=== PATIENT | female | born 1945 | race Caucasian/White ===

== ENCOUNTER 2019-07-05 20:47 | Observation (INO) | payer MEDICARE, OTHER, SELFPAY ==
[2019-07-05] VITALS (10 sets, daily range): BP systolic 168–233; BP diastolic 70–109; PULSE 60–80; RESP 13–23; TEMP 36.1; O2SAT 95–99; BMI 26.2
--- NOTE | 2019-07-05 21:07 | DI.RAD.S_ITS ---
PROCEDURE: XR CHEST 1V INDICATIONS: chest pain TECHNIQUE: One view of the chest was acquired. COMPARISON: None. FINDINGS: Surgical changes and devices: None. Lungs and pleura: Lungs are clear. No pleural effusions or pneumothorax. Mediastinum: Mediastinal contours appear normal. Heart size is normal. Bones and chest wall: No suspicious bony lesions. Overlying soft tissues appear unremarkable. IMPRESSION: No acute cardiopulmonary disease process. Dictated by: Alanis Dotson MD, PhD on 07/05/2019 at 21:44 Approved by: Alanis Dotson MD, PhD on 07/05/2019 at 21:45
[2019-07-05 21:37] LABS: Add Manual Diff / Slide Review NO; Basophils Absolute Auto 100 /uL (0-100); Basophils Percent Auto 1.1 % (0-2); Eosinophils Absolute Auto 100 /uL (0-450); Eosinophils Percent Auto 0.9 % (2-4); Hematocrit 41.1 % (36-46); Hemoglobin 14.1 g/dL (12.0-16.0); Lymphocytes Absolute Auto 1900 /uL (1100-4500); Mean Corpuscular HGB Conc 34.2 % (30-36); Mean Corpuscular Hemoglobin 29.4 PG (26-34); Monocytes Absolute Auto 500 /uL (0-900); Monocytes Percent Auto 7.7 % (3-14); Neutrophils Absolute Auto 3500 /uL (1500-7000); Neutrophils Percent Auto 58.3 % (50-75); Platelet Count 252 X10^3/uL (150-400); Red Blood Cell Count 4.78 X10^6/uL (4.0-5.2); Red Cell Distribution Width 13.4 % (11.6-14.8)
--- NOTE | 2019-07-05 21:50 | ED_ITS ---
HPI - General Adult General Chief complaint: Hypertension Stated complaint: high blood pressure and headache Time Seen by Provider: 07/05/19 21:40 Source: patient and family Mode of arrival: Ambulatory Limitations: no limitations History of Present Illness HPI narrative: 74-year-old female nonsmoker with history of hypertension presents with her in the chief complaint of gradually rising blood pressure over the past 2 weeks. Historically she had been managed with lisinopril 10 mg daily by her primary care provider in [place] but she has been gradually rising. She presents tonight with chief complaint of a headache and blood pressures in the 200s. She denies any blurred vision, trouble speech or focal neurologic findings such as numbness, tingling or weakness. She has no chest pain or shortness of breath and denies any abdominal pain, nausea or vomiting. She denies any dietary change or other lifestyle changes, stating that she is very relaxed considering world events. She was encouraged to increase lisinopril from 10-20 mg a few days ago and today he even took 30. Her headache has been gradually worsening and generalized in nature without much in the way of provocation or palliation. Onset (ago): day(s) Location: head Radiation: non-radiation Severity: moderate Quality: aching Pain Consistency: constant Relieving factors: none Exacerbating factors: none Associated symptoms: denies other symptoms Treatments prior to arrival: NSAID and aspirin Related Data Previous Rx's Medication Instructions Recorded hydralazine 10 mg PO QID 7 Days #28 tab 07/05/19 Allergies Allergy/AdvReac Type Severity Reaction Status Date / Time codeine Allergy Verified 07/05/19 23:13 oxycodone AdvReac Verified 07/05/19 23:13 Review of Systems Constitutional Constitutional: Denies chills, Denies fatigue, Denies fever(s), Denies frequent falls, Reports headache(s), Denies lethargy and Denies weakness Eyes Eyes: Denies change in vision, Denies eye discharge, Denies irritation and Denies loss of vision ENT Ears, Nose, Mouth, and Throat: Denies change in voice, Denies dizziness, Reports headache(s), Denies neck pain, Denies sore throat and Denies throat swelling Cardiovascular Cardiovascular: Denies chest pain, Denies irregular heart rhythm, Denies lightheadedness, Denies palpitations, Denies dyspnea, Denies dyspnea on exertion and Denies orthopnea Respiratory Respiratory: Denies cough, Denies dyspnea, Denies dyspnea on exertion and Denies wheezing Gastrointestinal Gastrointestinal: Denies abdominal pain, Denies change in bowel habits, Denies diarrhea, Denies nausea and Denies vomiting Genitourinary Genitourinary: Denies hematuria, Denies flank pain, Denies urinary incontinence and Denies urinary urgency Musculoskeletal Musculoskeletal: Denies back pain, Denies muscle weakness, Denies neck pain, Denies numbness and Denies tingling Integumentary/Breasts Skin/Breast: Denies pruritus, Denies erythema, Denies rash and Denies wounds Neurologic Neurologic: Denies behavioral changes, Denies confusion, Denies dizziness, Denies frequent falls, Reports headache(s), Denies loss of vision, Denies numbness, Denies tingling and Denies weakness Psychiatric Psychiatric: Denies anxiety, Denies behavioral changes, Denies confusion, Denies depression, Denies homicidal ideation and Denies suicidal ideation Endocrine Endocrine: Denies fatigue, Denies flushing and Denies palpitations Hematologic/Lymphatic Hematologic/Lymphatic: Denies easy bruising Allergic/Immunologic Allergic/Immunologic: Denies urticaria, Denies throat swelling and Denies wheezing Patient History Social History Smoking Status: Never smoker Smoking Status: Never smoker alcohol intake frequency: holidays/special occasions only Substance Use Type: does not use Exam Narrative Exam Narrative: GENERAL: [74] year old patient appears stated age. Well- nourished, well-developed patient, in mild distress. HEAD: Atraumatic. Normocephalic. EYES: Pupils equal round and reactive. Extraocular motions intact. No scleral icterus. No injection or drainage. ENT: Nose without bleeding, purulent drainage. Throat without erythema, tonsillar hypertrophy or exudate. Airway patent. NECK: Trachea midline. Non tender CARDIOVASCULAR: Regular rate and rhythm without murmurs, gallops, or rubs. RESPIRATORY: Clear to auscultation. Breath sounds equal bilaterally. No wheezes, rales, or rhonchi. GASTROINTESTINAL: Abdomen soft, non-tender, nondistended. EXTREMITIES: No edema or joint tenderness. BACK: Nontender without deformity or crepitance. No flank tenderness. NEURO: AOx3. SKIN: No rash or erythema of visible areas NIH Stroke Scale 1a. LOC: Patient is alert and keenly responsive (0) 1b. LOC Questions: Patient answers both LOC questions accurately (0) 1c. LOC Commands: Patient performs both tasks correctly (0) 2. Best Gaze: Normal (0) 3. Visual: No visual loss (0) 4. Facial palsy: Normal symmetrical movements (0) 5. Motor arm: No drift (0) 6. Motor leg: No drift (0) 7. Limb ataxia: Absent (0) 8. Sensory: Normal (0) 9. Best language: No aphasia; normal (0) 10. Dysarthria: Normal (0) 11. Extinction and inattention: No abnormality (0) NIHSS: 0 Initial Vital Signs Initial Vital Signs: Vital Signs Temperature 97 F L 07/05/19 21:00 Pulse Rate 72 07/05/19 21:00 Respiratory Rate 16 07/05/19 21:00 Blood Pressure 233/104 H 07/05/19 21:00 Pulse Oximetry 99 07/05/19 21:00 Course Orders Ordered: ED Orders 07/05/19 21:07 XR chest 1V Stat EKG-12 Lead Stat 07/05/19 21:15 Urinalysis and Microscopic Stat 07/05/19 21:16 Complete Blood Count AUTO DIFF Stat Comprehensive Metabolic Panel Stat Lipase Stat Partial Thromboplastin Time Stat Prothrombin Time INR Stat Troponin & CK Cardiac Panel Stat 07/05/19 23:52 EKG-12 Lead Stat 07/06/19 EKG-12 Lead Stat EKG-12 Lead Stat 07/06/19 00:40 Troponin I Stat 07/06/19 00:52 CT head/brain wo con Stat 07/06/19 02:32 EKG-12 Lead Stat Discontinued Medications Hydralazine HCl (Apresoline) 10 mg IV NOW ONE Stop: 07/05/19 22:37 Last Admin: 07/05/19 23:36 Dose: 10 mg Documented by: SELIN Ketorolac Tromethamine (Toradol) 15 mg IV NOW ONE Stop: 07/06/19 01:42 Last Admin: 07/06/19 01:57 Dose: 15 mg Documented by: SELIN Labetalol HCl (Trandate) 10 mg IV NOW ONE Stop: 07/06/19 00:06 Last Admin: 07/06/19 00:23 Dose: 10 mg Documented by: COLLINS Labetalol HCl (Trandate) 10 mg IV NOW ONE Stop: 07/06/19 03:13 Last Admin: 07/06/19 03:26 Dose: 10 mg Documented by: SELIN Metoprolol Tartrate (Lopressor) 50 mg PO NOW ONE Stop: 07/06/19 03:05 Ondansetron HCl (Zofran Odt Prepack) 1 bottle MISC SEEINSTR ONE Stop: 07/06/19 02:57 Reevaluation(s) Reevaluation #1: complete resolution of symptoms after Hydralazine 10mg IVP. Headache completely gone. within 20 minutes BP is back up and MORGAN returns. HR up to the 80s, Labetalol darian cerda, CT ordered patient BP down in the 140s for about 2 hours. She now is feeling nauseated, repeat notes BP up in the 190s again. Vital Signs Vital signs: Vital Signs - 8 hr 07/05/19 21:00 07/05/19 21:45 07/05/19 22:41 Temperature 97 F L Pulse Rate 72 61 67 Respiratory Rate 16 18 Blood Pressure 233/104 H Blood Pressure [Right Arm] 195/81 H 193/85 H Pulse Oximetry 99 97 97 07/05/19 23:36 07/05/19 23:51 07/06/19 00:05 Temperature Pulse Rate 61 80 83 Respiratory Rate 23 Blood Pressure 204/91 H Blood Pressure [Right Arm] 168/70 H 171/80 H Pulse Oximetry 97 07/06/19 00:53 07/06/19 01:47 Temperature Pulse Rate 71 71 Respiratory Rate Blood Pressure Blood Pressure [Right Arm] 155/71 H 132/66 Pulse Oximetry Medical Decision Making Lab Data Result diagrams: 07/05/19 21:16 07/05/19 21:16 Labs: Lab Results 07/05/19 07/05/19 07/05/19 Range/Units 21:15 21:16 21:16 WBC 6.0 (4.5-11.0) X10^3/uL RBC 4.78 (4.0-5.2) X10^6/uL Hgb 14.1 (12.0-16.0) g/dL Hct 41.1 (36-46) % MCV 86.0 (80-100) fL MCH 29.4 (26-34) PG MCHC 34.2 (30-36) % RDW 13.4 (11.6-14.8) % Plt Count 252 (150-400) X10^3/uL Neut % (Auto) 58.3 (50-75) % Lymph % (Auto) 32.0 (25-40) % [place] % (Auto) 7.7 (3-14) % Eos % (Auto) 0.9 L (2-4) % Baso % (Auto) 1.1 (0-2) % Neut # (Auto) 3500 (5928-5144) /uL Lymph # (Auto) 1900 (3565-8173) /uL [place] # (Auto) 500 (0-900) /uL Eos # (Auto) 100 (0-450) /uL Baso # (Auto) 100 (0-100) /uL PT 11.2 (10.1-12.7) SECONDS INR 1.0 (0.9-1.3) APTT 31 (26.4-36.2) SECONDS Sodium (137-145) mmol/L Potassium (3.4-5.1) mmol/L Chloride (98-107) mmol/L Carbon Dioxide (22-32) mmol/L BUN (7-17) mg/dL Creatinine (0.52-1.04) mg/dL Estimated GFR (>60) mL/min BUN/Creatinine Ratio (6-22) Glucose (80-110) mg/dL Calcium (8.4-10.2) mg/dL Total Bilirubin (0.2-1.3) mg/dL AST (14-36) IU/L ALT (<35) IU/L Alkaline Phosphatase (38-126) U/L Total Creatine Kinase (30-135) U/L CK-MB (CK-2) (<2.37) ng/mL CK-MB (CK-2) Rel Index (1.5-5.0) % Troponin I (0.01-0.034) ng/mL Total Protein (6.3-8.2) g/dL Albumin (3.5-5.0) g/dL Globulin (1.7-4.1) g/dL Albumin/Globulin Ratio (1.0-2.8) Lipase (23-300) U/L Urine Color Yellow Urine Appearance Clear Urine pH 5.5 (4.5-8.0) Ur Specific [place] 1.020 (1.000-1.035) Urine Protein Negative (Negative) Urine Glucose (UA) Negative (Negative) g/dL Urine Ketones Negative (NEGATIVE) Urine Occult Blood Negative (Negative) Urine Nitrate Negative (Negative) Urine Bilirubin Negative (NEGATIVE) Urine Urobilinogen 0.2 (0.2) E.U./dL Ur Leukocyte Esterase Negative (NEGATIVE) Urine RBC None seen (0-5/HPF) Urine WBC None seen (0-5/HPF) Ur Squamous Epith Cells 0-1 /hpf (0-5/HPF) Urine Bacteria None seen (None) Ur Culture Indicated? Cult not indicated 07/05/19 07/06/19 Range/Units 21:16 00:40 WBC (4.5-11.0) X10^3/uL RBC (4.0-5.2) X10^6/uL Hgb (12.0-16.0) g/dL Hct (36-46) % MCV (80-100) fL MCH (26-34) PG MCHC (30-36) % RDW (11.6-14.8) % Plt Count (150-400) X10^3/uL Neut % (Auto) (50-75) % Lymph % (Auto) (25-40) % [place] % (Auto) (3-14) % Eos % (Auto) (2-4) % Baso % (Auto) (0-2) % Neut # (Auto) (1217-8572) /uL Lymph # (Auto) (0739-6201) /uL [place] # (Auto) (0-900) /uL Eos # (Auto) (0-450) /uL Baso # (Auto) (0-100) /uL PT (10.1-12.7) SECONDS INR (0.9-1.3) APTT (26.4-36.2) SECONDS Sodium 139 (137-145) mmol/L Potassium 3.7 (3.4-5.1) mmol/L Chloride 105 (98-107) mmol/L Carbon Dioxide 29 (22-32) mmol/L BUN 16 (7-17) mg/dL Creatinine 0.65 (0.52-1.04) mg/dL Estimated GFR > 60.0 (>60) mL/min BUN/Creatinine Ratio 24.6 H (6-22) Glucose 104 (80-110) mg/dL Calcium 10.0 (8.4-10.2) mg/dL Total Bilirubin 0.2 (0.2-1.3) mg/dL AST 26 (14-36) IU/L ALT 19 (<35) IU/L Alkaline Phosphatase 55 (38-126) U/L Total Creatine Kinase 109 (30-135) U/L CK-MB (CK-2) 1.76 (<2.37) ng/mL CK-MB (CK-2) Rel Index 1.6 (1.5-5.0) % Troponin I < 0.012 < 0.012 (0.01-0.034) ng/mL Total Protein 7.5 (6.3-8.2) g/dL Albumin 4.5 (3.5-5.0) g/dL Globulin 3.0 (1.7-4.1) g/dL Albumin/Globulin Ratio 1.5 (1.0-2.8) Lipase 89 (23-300) U/L Urine Color Urine Appearance Urine pH (4.5-8.0) Ur Specific [place] (1.000-1.035) Urine Protein (Negative) Urine Glucose (UA) (Negative) g/dL Urine Ketones (NEGATIVE) Urine Occult Blood (Negative) Urine Nitrate (Negative) Urine Bilirubin (NEGATIVE) Urine Urobilinogen (0.2) E.U./dL Ur Leukocyte Esterase (NEGATIVE) Urine RBC (0-5/HPF) Urine WBC (0-5/HPF) Ur Squamous Epith Cells (0-5/HPF) Urine Bacteria (None) Ur Culture Indicated? Discharge Plan Departure Patient Disposition: Admitted as Observation Clinical Impression: Hypertension Qualifiers: Hypertension type: essential hypertension Qualified Code(s): I10 - Essential (primary) hypertension Admit Date/Time: 07/06/19 03:13 Admit Provider: Wil Nation
[2019-07-05 21:55] LABS: Bacteria Urine None Seen; RBC Urine None Seen (0-5/HPF); WBC Urine None Seen (0-5/HPF)
[2019-07-05 21:55] LABS: Prothrombin Time 11.2 SECONDS (10.1-12.7)
[2019-07-05 21:56] LABS: Appearance Urine UA CLEAR; Bilirubin Urine UA NEGATIVE (NEGATIVE); Color Urine UA YELLOW; Glucose Urine UA NEGATIVE (Negative); Ketones Urine UA NEGATIVE (NEGATIVE); Leukocyte Esterase Urine UA NEGATIVE (NEGATIVE); Nitrite Urine UA NEGATIVE (Negative); Occult Blood Urine UA NEGATIVE (Negative); Protein Urine UA NEGATIVE (Negative); Urobilinogen Urine UA 0.2 E.U./dL (0.2)
[2019-07-05 21:58] LABS: PTT Partial Thromboplastin Tim 31 SECONDS (26.4-36.2)
[2019-07-05 21:59] LABS: Alanine Aminotransferase 19 IU/L (<35); Albumin 4.5 g/dL (3.5-5.0); Albumin Globulin Ratio 1.5 (1.0-2.8); Alkaline Phosphatase 55 U/L (38-126); Aspartate Aminotransferase 26 IU/L (14-36); BUN Creatinine Ratio 24.6 (6-22); Bilirubin Total 0.2 mg/dL (0.2-1.3); Blood Urea Nitrogen 16 mg/dL (7-17); Carbon Dioxide 29 mmol/L (22-32); Chloride 105 mmol/L (98-107); Creatine Kinase 109 U/L (30-135); Estimated Glomerular Filt Rate > 60.0 mL/min (>60); Glucose 104 mg/dL (80-110); HEMOLYSIS < 15 (0-50); Lipase 89 U/L (23-300); Potassium 3.7 mmol/L (3.4-5.1); Sodium 139 mmol/L (137-145); Total Protein 7.5 g/dL (6.3-8.2)
[2019-07-05 22:04] LABS: pH Urine UA 5.5 (4.5-8.0)
[2019-07-05 22:11] LABS: Troponin I < 0.012 ng/mL (0.01-0.034)
[2019-07-05 22:14] LABS: CKMB % Relative Index 1.6 % (1.5-5.0); Creatine Kinase MB 1.76 ng/mL (<2.37)
[2019-07-05 22:24] LABS: Culture Indicated Urine Cult Not Indicated
[2019-07-05 22:25] LABS: Squamous Epithelial Cell Urine 0-1 /HPF (0-5/HPF)
[2019-07-05] MEDS: HYDRALAZINE 20 MG/ML VIAL 10 MG IV (23:36)
[2019-07-06] VITALS (31 sets, daily range): BP systolic 105–203; BP diastolic 55–91; PULSE 63–126; RESP 12–29; TEMP 35.9–36.4; O2SAT 93–98; BMI 26.2
[2019-07-06] MEDS: LABETALOL 20 MG/4 ML SYRINGE 10 MG IV ×2 (00:23→03:26)
--- NOTE | 2019-07-06 00:52 | DI.CT.S_ITS ---
PROCEDURE: CT HEAD/BRAIN WO CON INDICATIONS: critical hypertension, severe headache TECHNIQUE: Noncontrast 4.5 mm thick angled axial sections acquired from the foramen magnum to the vertex, with coronal and sagittal reformats. For radiation dose reduction, the following was used: automated exposure control, adjustment of mA and/or kV according to patient size. COMPARISON: None. FINDINGS: Image quality: Excellent. CSF spaces: Basal cisterns are patent. No extra-axial fluid collections. The ventricles are symmetric in size and shape. Brain: No intracranial bleeds or masses. There is cerebral volume loss for age, with resultant ventricular and sulcal prominence. There are periventricular and deep white matter chronic small vessel ischemic changes. There is intracranial internal carotid artery atherosclerosis. Skull and face: Calvarium and visualized facial bones appear intact, without suspicious lesions. Sinuses: Visualized sinuses and mastoids are clear. IMPRESSION: 1. CT head without acute intracranial abnormalities or acute calvarial fractures. 2. Age-related senescent changes and sequela of chronic small vessel ischemic disease. No significant discrepancy with the rn night radiology preliminary report. Dictated by: Osorio Golden M.D. on 07/06/2019 at 7:20 Approved by: Osorio Golden M.D. on 07/06/2019 at 7:23
[2019-07-06 01:24] LABS: Troponin I < 0.012 ng/mL (0.01-0.034)
[2019-07-06] MEDS: KETOROLAC 60 MG/2 ML VIAL 15 MG IV (01:57)
--- NOTE | 2019-07-06 02:32 | PC.NURSE ---
patient complaining of feeling like I am full of gas and I am burping. provider notified. repeat EKG ordered.
[2019-07-06] MEDS: PANTOPRAZOLE 40 MG VIAL 20 MG IV (03:41)
--- NOTE | 2019-07-06 04:00 | PC.NURSE ---
see paper chart for more vitals signs.
[2019-07-06] MEDS: KETOROLAC 15 MG/ML VIAL IV (04:55)
--- NOTE | 2019-07-06 05:16 | PM.HP.1 ---
History of Present Illness History of Present Illness Date Patient Seen: 07/06/19 Time Patient Seen: 05:16 Chief complaint: high blood pressure and headache Narrative: Mrs. Amina Collado is a 74-year-old female with a history significant for hypertension, hyperlipidemia and osteoporosis who presents to the emergency room for elevated blood pressure in the 200s. The patient provides a history of having increasing blood pressure over the last 2 weeks and has been treated by her primary care. She has taking lisinopril 10 mg daily for some time that was increased to 20 mg however the blood pressure continued to elevate. The patient took 30 mg of lisinopril yesterday. Yesterday she developed a ?Fierce? circumferential constant achy headache around the top of her head. She has never experienced something like this before and does not have a history of headaches or migraines. She denies changes in vision, photophobia, speech, numbness or tingling. She does endorse developing mild nausea since arriving at the hospital. The patient does endorse a history of her jaw dislocating when she vomits and needs help with reducing the dislocation. The patient endorses of couple weeks back having bilateral lower extremity bone pain similar to pain experienced some working out too hard and mild swelling that lasted 3 days and resolved spontaneously. She denies fevers or chills and has no nasal congestion or sore throat. He does have a sensation of mild chest tightness that she describes as excess air as well as a history palpitations as well as the feeling that she needs to burp. She denies shortness of breath cough or wheeze. She denies abdominal pain and has nausea as above. She reports no changes in bowel or bladder habits. Upon arrival to the ER the patient is afebrile with a temperature 97.0?, heart rate of 72, blood pressure 233/104, respirations 16 saturating 99% on on room air. Imaging was completed including a chest x-ray which showed no acute cardiopulmonary findings and normal heart size and head CT which showed no acute intracranial process and no bleed. On laboratory analysis she has white count of 6.0, hemoglobin of 14.1, hematocrit 41.1 and platelets of 252. On coagulation she has a PT of 11.2, INR 1.0 and PTT of 31. Her electrolytes are within normal limits she has a BUN of 16 and creatinine of 0.65. Her nonfasting glucose is 104. Her liver functions are all within normal limits. Her troponin is less than 0.012. Her urine is unremarkable with no findings indicative of infection. In the ER the patient received hydralazine with transient improvement in her blood pressure and reduction in her headache to a 2/10 which escalates again as blood pressure again elevates. She is administered labetalol 10 mg IV again with reduction of blood pressure and reduction headache but the headache is not alleviated. After 2 hours both blood pressure and headache escalated again. The patient's giving another dose of labetalol 10 mg IV and admitted to the medicine service for hypertensive urgency. Patient History Medical History (Updated 07/06/19 @ 05:31 by LETITIA Giordano) Hyperlipidemia (Acute) Hypertension (Inactive) Osteoporosis (Acute) Plantar fasciitis (Acute) Surgical History (Updated 07/06/19 @ 05:31 by LETITIA Giordano) History of bilateral breast reduction surgery (Acute) History of neck surgery (Acute) History of shoulder surgery (Acute) History of tonsillectomy (Acute) History of tubal ligation (Acute) Status post excision of lipoma (Acute) Family & Social History Family History (Updated 07/06/19 @ 05:32 by LETITIA Giordano) Father Hyperlipidemia Hypertension Mother Diabetes mellitus Alcoholism Daughter Hypertension Migraine headache Social History: household members spouse Prior Living Arrangements House Safety & Behavioral: Feels Safe in Current Yes Environment Been Physically Hurt or No Threatened By a Person Suicidal Ideation Description None Suicide Plan Description No Plan Tobacco & Substance use: Tobacco type cigarettes Smoking Status Former smoker alcohol intake former alcohol intake frequency holiday/special occasion Substance Use Type does not use Comment: Advanced directives: In direct discussion with the patient she states her desire to be DO NOT RESUSCITATE. She designates her to be her surrogate decision maker. Meds Home Medications and Allergies Home Medications Medication Instructions Recorded Confirmed Type atorvastatin 10 mg PO DAILY 07/06/19 07/06/19 History lisinopril 20 mg PO DAILY 07/06/19 07/06/19 History zolpidem [Ambien] 5 mg PO BEDTIME PRN 07/06/19 07/06/19 History Allergies Allergy/AdvReac Type Severity Reaction Status Date / Time codeine Allergy Verified 07/05/19 23:13 oxycodone AdvReac Verified 07/05/19 23:13 Exam Vital Signs (past 8 hours): - 07/05/19 21:40 07/05/19 21:45 07/05/19 22:00 Pulse Rate 60 61 67 Respiratory Rate 18 18 16 Blood Pressure Blood Pressure [Right Arm] 211/89 H 195/81 H 191/86 H Pulse Oximetry 98 97 96 07/05/19 22:30 07/05/19 22:41 07/05/19 23:00 Pulse Rate 61 67 64 Respiratory Rate 16 14 Blood Pressure Blood Pressure [Right Arm] 193/85 H 193/85 H 208/90 H Pulse Oximetry 98 97 95 07/05/19 23:20 07/05/19 23:36 07/05/19 23:51 Pulse Rate 61 61 80 Respiratory Rate 13 23 Blood Pressure 204/91 H Blood Pressure [Right Arm] 227/109 H 168/70 H Pulse Oximetry 97 97 07/06/19 00:00 07/06/19 00:05 07/06/19 00:10 Pulse Rate 84 83 84 Respiratory Rate 22 Blood Pressure 178/80 H Blood Pressure [Right Arm] 171/80 H 171/80 H Pulse Oximetry 97 07/06/19 00:30 07/06/19 00:53 07/06/19 00:55 Pulse Rate 74 71 73 Respiratory Rate 23 23 Blood Pressure 140/64 Blood Pressure [Right Arm] 173/69 H 155/71 H 140/64 Pulse Oximetry 97 96 07/06/19 01:35 07/06/19 01:40 07/06/19 01:47 Pulse Rate 73 71 71 Respiratory Rate 19 15 Blood Pressure Blood Pressure [Right Arm] 142/65 H 132/61 132/66 Pulse Oximetry 95 96 07/06/19 02:00 07/06/19 02:20 07/06/19 03:00 Pulse Rate 68 71 70 Respiratory Rate 13 12 12 Blood Pressure Blood Pressure [Right Arm] 160/73 H 138/63 197/84 H Pulse Oximetry 96 95 97 07/06/19 03:25 07/06/19 03:26 07/06/19 03:30 Pulse Rate 71 72 71 Respiratory Rate 24 29 H Blood Pressure 203/91 H Blood Pressure [Right Arm] 201/91 H 163/76 H Pulse Oximetry 97 96 07/06/19 03:45 07/06/19 03:55 Pulse Rate 66 69 Respiratory Rate 27 H 13 Blood Pressure 169/73 H Blood Pressure [Right Arm] 174/73 H 169/73 H Pulse Oximetry 96 95 Oxygen Delivery Method Room Air Narrative Exam Narrative: GENERAL APPEARANCE: well developed, well nourished, mildly restless and uncomfortable appearing. HEENT: Normocephalic, PERRLA, conjunctiva slightly pink, EOMs intact without nystagmus, no sinus tenderness to percussion, no rhinorrhea, mucous membranes are moist and pink without lesions or exudate. NECK/THYROID: neck supple, no JVD, no carotid bruit, no thyromegaly, trachea midline. LYMPH NODES: no cervical or supraclavicular lymphadenopathy. SKIN: Newborn, warm and dry, no visible lesions, rashes, ulcerations or petechiae. HEART: regular rate and rhythm, S1-S2, no murmur, no rubs or gallops, brisk capillary refill, no edema LUNGS: clear to auscultation bilaterally, no coarseness crackles or wheezing, no cough present CHEST: Symmetrical movement, no accessory muscle use, good tidal volume. ABDOMEN: Soft, no distention, no abdominal tenderness, no guarding or peritoneal signs, no organomegaly, no flank or suprapubic tenderness, active bowel tones. EXTREMITIES: moves all extremities, strength is 5/5 and symmetrical, no deformities or joint effusions. NEUROLOGIC: AAO x4, briskly responsive, cranial nerves II-XII grossly intact, sensation intact to light touch, hearing grossly normal to speech. PSYCH: Good eye contact, linear thought process, cooperative, appropriate with stable behavior Objective Labs Result Diagrams: 07/05/19 21:16 07/05/19 21:16 Labs: Laboratory Results - last 24 hr 07/05/19 07/05/19 07/05/19 21:15 21:16 21:16 WBC 6.0 RBC 4.78 Hgb 14.1 Hct 41.1 MCV 86.0 MCH 29.4 MCHC 34.2 RDW 13.4 Plt Count 252 Neut % (Auto) 58.3 Lymph % (Auto) 32.0 [place] % (Auto) 7.7 Eos % (Auto) 0.9 L Baso % (Auto) 1.1 Neut # (Auto) 3500 Lymph # (Auto) 1900 [place] # (Auto) 500 Eos # (Auto) 100 Baso # (Auto) 100 PT 11.2 INR 1.0 APTT 31 Sodium Potassium Chloride Carbon Dioxide BUN Creatinine Estimated GFR BUN/Creatinine Ratio Glucose Calcium Total Bilirubin AST ALT Alkaline Phosphatase Total Creatine Kinase CK-MB (CK-2) CK-MB (CK-2) Rel Index Troponin I Total Protein Albumin Globulin Albumin/Globulin Ratio Lipase Urine Color Yellow Urine Appearance Clear Urine pH 5.5 Ur Specific [place] 1.020 Urine Protein Negative Urine Glucose (UA) Negative Urine Ketones Negative Urine Occult Blood Negative Urine Nitrate Negative Urine Bilirubin Negative Urine Urobilinogen 0.2 Ur Leukocyte Esterase Negative Urine RBC None seen Urine WBC None seen Ur Squamous Epith Cells 0-1 /hpf Urine Bacteria None seen Ur Culture Indicated? Cult not indicated 07/05/19 07/06/19 21:16 00:40 WBC RBC Hgb Hct MCV MCH MCHC RDW Plt Count Neut % (Auto) Lymph % (Auto) [place] % (Auto) Eos % (Auto) Baso % (Auto) Neut # (Auto) Lymph # (Auto) [place] # (Auto) Eos # (Auto) Baso # (Auto) PT INR APTT Sodium 139 Potassium 3.7 Chloride 105 Carbon Dioxide 29 BUN 16 Creatinine 0.65 Estimated GFR > 60.0 BUN/Creatinine Ratio 24.6 H Glucose 104 Calcium 10.0 Total Bilirubin 0.2 AST 26 ALT 19 Alkaline Phosphatase 55 Total Creatine Kinase 109 CK-MB (CK-2) 1.76 CK-MB (CK-2) Rel Index 1.6 Troponin I < 0.012 < 0.012 Total Protein 7.5 Albumin 4.5 Globulin 3.0 Albumin/Globulin Ratio 1.5 Lipase 89 Urine Color Urine Appearance Urine pH Ur Specific [place] Urine Protein Urine Glucose (UA) Urine Ketones Urine Occult Blood Urine Nitrate Urine Bilirubin Urine Urobilinogen Ur Leukocyte Esterase Urine RBC Urine WBC Ur Squamous Epith Cells Urine Bacteria Ur Culture Indicated? Assessment & Plan Assessment & Plan narrative: This is a 74-year-old female who has a history of hypertension that it been adequately controlled on 10 mg lisinopril until 2 weeks ago as patient began experiencing progressively elevating blood pressures. Blood pressures been refractory to treatment with increased dose of lisinopril. Patient developed a severe headache with blood pressure over 200 prompting her to present to the emergency department. 1. Hypertensive urgency, acute, present on admission, active. -patient presents with elevated blood pressure of 233/104 upon arrival to the emergency department. No prior history of severely elevated blood pressure. -patient developed a severe headache circumferentially the top of her head that was constant and subsequently mild nausea. -imaging was done with a chest x-ray which was negative and head CT which showed no acute intracranial process. -patient was initially treated with hydralazine with brief reduction in blood pressure but marked improvement in headache. Symptoms returned and were treated with labetalol 10 mg IV x2. -will cautiously lower blood pressure with goal of 20-25% reduction over the next day. -ordered labetalol 100 mg p.o. now and will evaluate response. -increase the patient's lisinopril dose to 40 mg daily. -will follow blood pressure and treat as indicated. -patient received Toradol for headache with little effect. 2. Severe headache, acute, present on admission, active. -patient states she had onset of severe headache yesterday commensurate with high blood pressure. -headache improved transiently with blood pressure reduction. -patient is given Toradol 15 mg IV in the ER in repeated upon arrival to the acute care floor. -will avoid opiates related to potential rebound pain. -Tylenol 975 mg every 8 hours as needed for pain. 3. Hyperlipidemia, stable -will continue patient's home medication of atorvastatin 10 mg daily. Isolation: None VTE prophylaxis: Bilateral SCDs, enoxaparin IV fluids: Saline lock Diet: Heart healthy low-sodium Code status: DO NOT RESUSCITATE. The patient is admitted to the hospital for hypertensive urgency with elevated blood pressures an associated headache. The patient is admitted as observation status with expected length of stay to be less than 2 midnights. Scores GCS [place] coma scale eye opening: Spontaneous [place] coma scale verbal response: Orientated [place] coma scale motor response: Obey commands [place] coma scale total score: 15
[2019-07-06] MEDS: LABETALOL 100 MG TABLET PO (05:34)
[2019-07-06] MEDS: PANTOPRAZOLE 20 MG TABLET 40 MG PO (05:36)
[2019-07-06] MEDS: ONDANSETRON 4 MG/2 ML INJ IV (05:37)
[2019-07-06 06:58] LABS: Add Manual Diff / Slide Review NO; Basophils Absolute Auto 0 /uL (0-100); Basophils Percent Auto 0.7 % (0-2); Eosinophils Absolute Auto 0 /uL (0-450); Eosinophils Percent Auto 0.1 % (2-4); Hematocrit 38.8 % (36-46); Hemoglobin 13.1 g/dL (12.0-16.0); Lymphocytes Absolute Auto 1200 /uL (1100-4500); Lymphocytes Percent Auto 18.1 % (25-40); Mean Corpuscular HGB Conc 33.7 % (30-36); Mean Corpuscular Hemoglobin 29.1 PG (26-34); Mean Corpuscular Volume 86.4 fL (80-100); Monocytes Absolute Auto 300 /uL (0-900); Monocytes Percent Auto 4.8 % (3-14); Neutrophils Absolute Auto 4900 /uL (1500-7000); Neutrophils Percent Auto 76.3 % (50-75); Platelet Count 231 X10^3/uL (150-400); Red Blood Cell Count 4.49 X10^6/uL (4.0-5.2); Red Cell Distribution Width 13.5 % (11.6-14.8); White Blood Cell Count 6.4 X10^3/uL (4.5-11.0)
[2019-07-06 07:06] LABS: BUN Creatinine Ratio 21.3 (6-22); Blood Urea Nitrogen 13 mg/dL (7-17); Calcium 9.3 mg/dL (8.4-10.2); Carbon Dioxide 26 mmol/L (22-32); Chloride 108 mmol/L (98-107); Estimated Glomerular Filt Rate > 60.0 mL/min (>60); Glucose 114 mg/dL (80-110); HEMOLYSIS < 15 (0-50); Potassium 4.4 mmol/L (3.4-5.1); Sodium 140 mmol/L (137-145)
[2019-07-06] MEDS: ENOXAPARIN 40 MG/0.4 ML SYRINGE SUBCUT (09:35)
[2019-07-06] MEDS: ACETAMINOPHEN 325 MG TABLET 975 MG PO (09:35)
--- NOTE | 2019-07-06 09:58 | CM.DANOTE ---
DCP/Assessment: Reviewed chart. Patient is a 74yr old female admitted to [facility].. with high BP/headache. PCP is Dr. Gaston. Primary payor is 1)Med[employer]are 2)[employer] Met with patient explained CM/SW role. Patient alert and oriented at time of visit. Patient reports that she resides with her spouse/Jb on [facility]. Patient indicates that she is completely I in all ADL's. Patient anticipates going home sometime today. Patient reports that she will be going to her sister/Kari's in [place] at time of d/c. Patient has PCP in [place] and prefers to be closer to office if needed for any outpatient follow up. Patient reports spouse/Jb also I in all ADL's and will be fine on his own at home. P: Home (sister's) at time of d/c. No identified d/c planning needs. SAVI Gorman Discharge Planning/Care Management Advanced directive, confirm from FAMILY Start: 07/06/19 04:54 Freq: Q24H Status: Active Protocol: Document 07/06/19 04:54 RAC (Rec: 07/06/19 05:06 RAC [id number]) Advance Directive, confirm on record Time 05:05 Person contacted nobody available Copy received No CM Discharge Assessment Start: 07/06/19 09:12 Freq: Status: Active Protocol: Document 07/06/19 09:12 KJS (Rec: 07/06/19 09:14 KJS [id number]) Discharge Planning Assessment Assigned Campaign Management Specialist SAVI Gorman Contact Information Jb Tobias (spouse) [phone] Advance Directives? No History Provided By Patient,Medical Record Has Patient been admitted in last 30 No days? Prior Living Arrangements House Household Members spouse Type of transporation used prior to Drives own vehicle admit Independent with ADL's Yes Is patient alert and oriented? Yes Caregiver for Another No Barriers to Discharge No Comment Patient will be going to her sister/Kari's in [place] at time of d/c. Discharge Plan Home Transportation Arrangement Patient's sister will provider transportation. Referrals Initiated None needed Whiteboard Updated in Patient Room with Yes name and ext. # of Campaign Management Specialist Review Status In Process Next Review Type Continued Stay Review Document 07/06/19 09:58 KJS (Rec: 07/06/19 09:58 [facility] [id number]) Discharge Planning Assessment Assigned Campaign Management Specialist SAVI Gorman Contact Information Jb Collado (spouse) [phone] Advance Directives? No History Provided By Patient,Medical Record Has Patient been admitted in last 30 No days? Prior Living Arrangements House Household Members spouse Type of transporation used prior to Drives own vehicle admit Independent with ADL's Yes Is patient alert and oriented? Yes Caregiver for Another No Barriers to Discharge No Comment Patient will be going to her sister/Kari's in [place] at time of d/c. Discharge Plan Home Transportation Arrangement Patient's sister will provider transportation. Referrals Initiated None needed Whiteboard Updated in Patient Room with Yes name and ext. # of Campaign Management Specialist Review Status In Process Next Review Type Continued Stay Review
--- NOTE | 2019-07-06 10:50 | PC.NURSE ---
Day shift note: Patient awake, alert, and pleasant. C/O frontal ache to head, described as a band like pressure, /10, no nausea or vomiting. No c/o chest tightness or pressure. Excellent appetite, tolerating PO intake. Up OOB independently, performing basic ADLs. Medicated with Tylenol 650 mg PRN with adequate relief, states 10. Head ache worsens with light and noise. Communicating with family via phone. Tele: NSR. SCDs in place while in bed. States headache significantly improved from previous night. BP 116/55 HR 70 at 0815. Updated regarding plan of care, maintaining room quiet/dim for comfort. Call light within reach, calls appropriately for staff assist. Dr. Briceño at bedside this AM.
--- NOTE | 2019-07-06 13:32 | PM.DS.1 ---
History of Present Illness History of Present Illness Date Patient Seen: 07/06/19 Time Patient Seen: 13:32 Chief complaint: high blood pressure and headache Narrative: As per LETITIA Giordano: Mrs. Amina Collado is a 74-year-old female with a history significant for hypertension, hyperlipidemia and osteoporosis who presents to the emergency room for elevated blood pressure in the 200s. The patient provides a history of having increasing blood pressure over the last 2 weeks and has been treated by her primary care. She has taking lisinopril 10 mg daily for some time that was increased to 20 mg however the blood pressure continued to elevate. The patient took 30 mg of lisinopril yesterday. Yesterday she developed a ?Fierce? circumferential constant achy headache around the top of her head. She has never experienced something like this before and does not have a history of headaches or migraines. She denies changes in vision, photophobia, speech, numbness or tingling. She does endorse developing mild nausea since arriving at the hospital. The patient does endorse a history of her jaw dislocating when she vomits and needs help with reducing the dislocation. The patient endorses of couple weeks back having bilateral lower extremity bone pain similar to pain experienced some working out too hard and mild swelling that lasted 3 days and resolved spontaneously. She denies fevers or chills and has no nasal congestion or sore throat. He does have a sensation of mild chest tightness that she describes as excess air as well as a history palpitations as well as the feeling that she needs to burp. She denies shortness of breath cough or wheeze. She denies abdominal pain and has nausea as above. She reports no changes in bowel or bladder habits. Upon arrival to the ER the patient is afebrile with a temperature 97.0?, heart rate of 72, blood pressure 233/104, respirations 16 saturating 99% on on room air. Imaging was completed including a chest x-ray which showed no acute cardiopulmonary findings and normal heart size and head CT which showed no acute intracranial process and no bleed. On laboratory analysis she has white count of 6.0, hemoglobin of 14.1, hematocrit 41.1 and platelets of 252. On coagulation she has a PT of 11.2, INR 1.0 and PTT of 31. Her electrolytes are within normal limits she has a BUN of 16 and creatinine of 0.65. Her nonfasting glucose is 104. Her liver functions are all within normal limits. Her troponin is less than 0.012. Her urine is unremarkable with no findings indicative of infection. In the ER the patient received hydralazine with transient improvement in her blood pressure and reduction in her headache to a 2/10 which escalates again as blood pressure again elevates. She is administered labetalol 10 mg IV again with reduction of blood pressure and reduction headache but the headache is not alleviated. After 2 hours both blood pressure and headache escalated again. The patient's giving another dose of labetalol 10 mg IV and admitted to the medicine service for hypertensive urgency. Discharge Providers Provider Date of admission: 07/06/19 03:13 Discharge Date: 07/06/19 Consults: 07/06/19 04:42 Consult to Discharge Planning Routine Comment: Discharge provider: Wil Briceño DO Summary Hospital Course Discharge Diagnosis: 1. hypertensive urgency, present on admission, resolved. 2. Headache, resolved. 3. Hyperlipidemia, chronic, stable. Hospital Course: Patient was admitted for elevated blood pressures and headache. Headache improved with control of her blood pressure and character changed to cervicogenic in nature. Her headache was much improved on discharge. She was given 40 mg of lisinopril and 100 mg of labetalol and blood pressures remained excellent the morning after admission. She was discharged home and plans to follow up with PCP the next day. Exam Vital Signs (past 8 hours): - 07/06/19 05:34 07/06/19 06:00 07/06/19 06:35 Temperature Pulse Rate 71 67 69 Respiratory Rate 21 21 Blood Pressure 162/67 H 139/65 116/56 L Pulse Oximetry 93 95 07/06/19 07:00 07/06/19 07:30 07/06/19 08:17 Temperature Pulse Rate 65 65 68 Respiratory Rate 12 Blood Pressure 121/58 L 105/55 L Pulse Oximetry 96 97 07/06/19 09:36 07/06/19 10:07 07/06/19 11:40 Temperature 97.2 F L Pulse Rate 70 63 Respiratory Rate 16 16 Blood Pressure 116/55 L 143/66 H 132/60 Pulse Oximetry 96 97 Oxygen Delivery Method Room Air Oxygen Flow Rate 0 Narrative Exam Narrative: GENERAL APPEARANCE: well developed, well nourished, mildly restless and uncomfortable appearing. HEENT: Normocephalic, PERRLA, conjunctiva slightly pink, EOMs intact without nystagmus, no sinus tenderness to percussion, no rhinorrhea, mucous membranes are moist and pink without lesions or exudate. NECK/THYROID: neck supple, no JVD, no carotid bruit, no thyromegaly, trachea midline. Tight paraspinal musculature. LYMPH NODES: no cervical or supraclavicular lymphadenopathy. SKIN: [place], warm and dry, no visible lesions, rashes, ulcerations or petechiae. HEART: regular rate and rhythm, S1-S2, no murmur, no rubs or gallops, brisk capillary refill, no edema LUNGS: clear to auscultation bilaterally, no coarseness crackles or wheezing, no cough present CHEST: Symmetrical movement, no accessory muscle use, good tidal volume. ABDOMEN: Soft, no distention, no abdominal tenderness, no guarding or peritoneal signs, no organomegaly, no flank or suprapubic tenderness, active bowel tones. EXTREMITIES: moves all extremities, strength is 5/5 and symmetrical, no deformities or joint effusions. NEUROLOGIC: AAO x4, cranial nerves II-XII grossly intact, sensation intact to light touch, hearing grossly normal to speech. PSYCH: Good eye contact, linear thought process, cooperative, appropriate with stable behavior Objective Labs Result Diagrams: 07/06/19 06:50 07/06/19 06:50 Labs: Laboratory Results - last 24 hr 07/05/19 07/05/19 07/05/19 21:15 21:16 21:16 WBC 6.0 RBC 4.78 Hgb 14.1 Hct 41.1 MCV 86.0 MCH 29.4 MCHC 34.2 RDW 13.4 Plt Count 252 Neut % (Auto) 58.3 Lymph % (Auto) 32.0 [place] % (Auto) 7.7 Eos % (Auto) 0.9 L Baso % (Auto) 1.1 Neut # (Auto) 3500 Lymph # (Auto) 1900 [place] # (Auto) 500 Eos # (Auto) 100 Baso # (Auto) 100 PT 11.2 INR 1.0 APTT 31 Sodium Potassium Chloride Carbon Dioxide BUN Creatinine Estimated GFR BUN/Creatinine Ratio Glucose Calcium Magnesium Total Bilirubin AST ALT Alkaline Phosphatase Total Creatine Kinase CK-MB (CK-2) CK-MB (CK-2) Rel Index Troponin I Total Protein Albumin Globulin Albumin/Globulin Ratio Lipase Urine Color Yellow Urine Appearance Clear Urine pH 5.5 Ur Specific [place] 1.020 Urine Protein Negative Urine Glucose (UA) Negative Urine Ketones Negative Urine Occult Blood Negative Urine Nitrate Negative Urine Bilirubin Negative Urine Urobilinogen 0.2 Ur Leukocyte Esterase Negative Urine RBC None seen Urine WBC None seen Ur Squamous Epith Cells 0-1 /hpf Urine Bacteria None seen Ur Culture Indicated? Cult not indicated 07/05/19 07/06/19 07/06/19 21:16 00:40 06:50 WBC 6.4 RBC 4.49 Hgb 13.1 Hct 38.8 MCV 86.4 MCH 29.1 MCHC 33.7 RDW 13.5 Plt Count 231 Neut % (Auto) 76.3 H Lymph % (Auto) 18.1 L [place] % (Auto) 4.8 Eos % (Auto) 0.1 L Baso % (Auto) 0.7 Neut # (Auto) 4900 Lymph # (Auto) 1200 [place] # (Auto) 300 Eos # (Auto) 0 Baso # (Auto) 0 PT INR APTT Sodium 139 Potassium 3.7 Chloride 105 Carbon Dioxide 29 BUN 16 Creatinine 0.65 Estimated GFR > 60.0 BUN/Creatinine Ratio 24.6 H Glucose 104 Calcium 10.0 Magnesium Total Bilirubin 0.2 AST 26 ALT 19 Alkaline Phosphatase 55 Total Creatine Kinase 109 CK-MB (CK-2) 1.76 CK-MB (CK-2) Rel Index 1.6 Troponin I < 0.012 < 0.012 Total Protein 7.5 Albumin 4.5 Globulin 3.0 Albumin/Globulin Ratio 1.5 Lipase 89 Urine Color Urine Appearance Urine pH Ur Specific [place] Urine Protein Urine Glucose (UA) Urine Ketones Urine Occult Blood Urine Nitrate Urine Bilirubin Urine Urobilinogen Ur Leukocyte Esterase Urine RBC Urine WBC Ur Squamous Epith Cells Urine Bacteria Ur Culture Indicated? 07/06/19 06:50 WBC RBC Hgb Hct MCV MCH MCHC RDW Plt Count Neut % (Auto) Lymph % (Auto) [place] % (Auto) Eos % (Auto) Baso % (Auto) Neut # (Auto) Lymph # (Auto) [place] # (Auto) Eos # (Auto) Baso # (Auto) PT INR APTT Sodium 140 Potassium 4.4 Chloride 108 H Carbon Dioxide 26 BUN 13 Creatinine 0.61 Estimated GFR > 60.0 BUN/Creatinine Ratio 21.3 Glucose 114 H Calcium 9.3 Magnesium 2.0 Total Bilirubin AST ALT Alkaline Phosphatase Total Creatine Kinase CK-MB (CK-2) CK-MB (CK-2) Rel Index Troponin I Total Protein Albumin Globulin Albumin/Globulin Ratio Lipase Urine Color Urine Appearance Urine pH Ur Specific [place] Urine Protein Urine Glucose (UA) Urine Ketones Urine Occult Blood Urine Nitrate Urine Bilirubin Urine Urobilinogen Ur Leukocyte Esterase Urine RBC Urine WBC Ur Squamous Epith Cells Urine Bacteria Ur Culture Indicated? Discharge Plan Discharge Plan Patient Disposition: Home Discharge comment: You were admitted to the hospital with high blood pressure. You improved when starting lisinopril 40 mg. You may or not need an additional dose of labetalol 100 mg as well. These medications were prescribed for you to [facility]. Please follow up with your PCP as previously scheduled. Discharge orders & Medications Prescriptions: New lisinopril 40 mg tablet 40 mg PO DAILY 30 Days Qty: 30 RF: 0 labetalol 100 mg tablet 100 mg PO DAILY 30 Days Qty: 30 RF: 0 Continued atorvastatin 10 mg Tablet 10 mg PO DAILY RF: 0 zolpidem [Ambien] 5 mg Tablet 5 mg PO BEDTIME PRN (Reason: Sleep) RF: 0 Discontinued lisinopril 20 mg Tablet 20 mg PO DAILY RF: 0 Discharge Health Status Health Concerns: Hypertensive urgency Diet/Activity/Treatments Diet: Diet as Tolerated and Low-sodium Activity: As tolerated Visit Report/Discharge Packet Instructions: DI for High Blood Pressure, Labetalol (By mouth) Discharge Data Attending Provider: Wil Nation Admit Date/Time: 07/06/19 03:13 Discharges patient from system. Discharge Date/Time: 07/06/19 16:30
--- NOTE | 2019-07-06 16:38 | PC.NURSE ---
Discharge instructions given to patient, verbalizes understanding. Belongings sent home with patient. IV and telemetry d/c'd. Escorted out per wheelchair with [employer].
== END 2019-07-06 16:30 | disposition home or self-care (01) ==
LOC: ED 07-06 03:13 → AC 07-06 03:14 → ICU 07-06 04:26
PROVIDERS: Admitting Provider Nurse Practitioner Adult Health; Emergency Provider Emergency Medicine; Visit Provider Nurse Practitioner Adult Health
DX: I16.0 Hypertensive urgency (principal); R51 Headache; I10 Essential (primary) hypertension; E78.5 Hyperlipidemia, unspecified
CPT/HCPCS: 36415; 70450; 71045; 80048; 80053; 81001; 82550; 82553; 83690; 83735; 84484; 85025; 85610; 85730; 93005; 94760; 96372; 96374; 96375; 96376; 99285; G0378; C9113; J0360; J1650; J1885; J2405